=== PATIENT | female | born 1995 | race Caucasian/White ===

== ENCOUNTER 2017-01-23 20:35 | Emergency (ER) | payer SELFPAY ==
[2017-01-23 20:42] VITALS: BP 139/86; PULSE 85; RESP 16; TEMP 99.1; O2SAT 100
--- NOTE | 2017-01-23 21:29 | PD ---
HPI Chief Complaint: Chest Pain Time Seen by Provider: 21:24 Travel History International Travel<30 days: No Contact w/Intl Traveler<30days: No Traveled to known affect area: No History of Present Illness HPI 21-year-old white female presents to the department with complaints of chest pain. She tells me that she has had problems with intermittent chest pain for over several months now. In the last 2 weeks symptoms have been more persistent and then much more in the last 2 days. She admits to a recent cold this week. Positive congestion, cough and general malaise. Subjective fever. She states the pains are sharp and lasting minutes to hours at times. They seem to be random in the chest around the left side, right side, central and some radiation to her back. Pains are not exertional. There is no exacerbating or palliative activities. There is no associated nausea or vomiting. No diaphoresis or shortness of breath. She does smoke and smoke marijuana. She does not use control. She denies any calf tenderness or swelling. No sedentary activity. No family history of heart disease PFSH Past Medical History Narrative Medical Asthma as a child. Tetanus Vaccination: < 5 Years ?: Not LMP: 2 weeks ago Past Surgical History Narrative Surgical Tonsillectomy Tonsillectomy: Yes Social History Alcohol Use: Yes Tobacco Use: Yes (1-2 CIGS A DAY ) Substance Use: Yes (MARIJUANA ) Allergies-Medications (Allergen,Severity, Reaction): Coded Allergies: No Known Allergies (Verified Allergy, Unknown, 01/23/17) Review of Systems General / Constitutional: Positive: Fever Eyes: No: Visual changes HENT: Positive: Sore Throat, Congestion, No: Headaches Cardiovascular: Positive: Chest Pain or Discomfort, No: Palpitations, Irregular Rhythm, Tachycardia Respiratory: Positive: Cough, No: Shortness of Breath Gastrointestinal: No: Nausea, Vomiting, Diarrhea, Abdominal Pain Genitourinary: No: Dysuria Musculoskeletal: No: Pain Skin: No Rash Neurologic: No: Weakness Psychiatric: No: Depression Endocrine: No: Polydipsia Hematologic/Lymphatic: No: Easy Bruising Physical Exam Narrative GENERAL: Well-developed, well-nourished in no acute distress. Nontoxic appearing. HEAD: Normocephalic, atraumatic. EYES: Pupils equal round and reactive. Extraocular motions intact. No scleral icterus. No injection or drainage. ENT: TMs clear without erythema. The external auditory canals clear. Nose: clear . Posterior pharynx is pink and moist. No tonsillar edema or exudate. Uvula midline. Airway patent. NECK: Trachea midline.Supple, nontender, moves head freely. No central bony tenderness or spasm. CARDIOVASCULAR: Regular rate and rhythm without murmurs, gallops, or rubs. CHEST: Mild tenderness throughout without deformity or crepitance. No retractions or use of accessory muscles. RESPIRATORY: Clear to auscultation. Breath sounds equal bilaterally. No wheezes , rales, or rhonchi. GASTROINTESTINAL: Abdomen soft, non-tender, nondistended. No hepato-splenomegaly , or palpable masses. No guarding. EXTREMITIES: No clubbing, cyanosis, or edema. No joint tenderness, effusion, or edema noted. No calf tenderness. No Homans. No cords. BACK: Nontender without deformity or crepitance. No flank tenderness. Data Data Last Documented VS Vital Signs Date Time Temp Pulse Resp B/P (MAP) Pulse Ox O2 Delivery O2 Flow Rate FiO2 01/23/17 20:42 99.1 85 16 139/86 (103) 100 Room Air Orders Orders Electrocardiogram (01/23/17 21:23) Chest, Single Ap (01/23/17 21:23) Ed Discharge Order (01/23/17 21:56) MDM Medical Decision Making Medical Screen Exam Complete: Yes Emergency Medical Condition: Yes Medical Record Reviewed: Yes Interpretation(s) Chest x-ray: Negative EKG: Normal sinus rhythm. Normal rate. Normal intervals. No acute ST-T wave changes. Differential Diagnosis Differential diagnosis: Costochondritis, pleurisy, pericarditis, pneumonia, anxiety, bronchitis Narrative Course Patient's EKG and chest x-ray are unremarkable. This is noncardiac chest pain Diagnosis Primary Impression: Non-cardiac chest pain Patient Instructions: General Instructions Additional Instructions: Rest. 3 Advil twice daily. Follow-up with a medical doctor in one week. Return to ER for any problems Med/Other Pt SpecificInfo: No Meds Exist/No RX given Disposition: 01 DISCHARGE HOME Condition: Stable Kenan Andrade Jan 23, 2017 21:29
--- NOTE | 2017-01-23 22:26 | RADRPT ---
EXAM DATE/TIME: 01/23/2017 21:40 [facility] COMPARISON: No previous studies available for comparison. INDICATIONS : Chest pain in middle chest. MEDICAL HISTORY : None. SURGICAL HISTORY : None. ENCOUNTER: Initial ACUITY: 3 days PAIN SCORE: 6/10 LOCATION: Bilateral chest FINDINGS: A single view of the chest demonstrates the lungs to be symmetrically aerated without evidence of mas s, infiltrate or effusion. The cardiomediastinal contours are unremarkable. Osseous structures are intact. CONCLUSION: No acute disease. Terrence Jackson MD on January 23, 2017 at 22:23 Board Certified Radiologist. This report was verified electronically.
--- NOTE | 2017-01-24 15:59 | EKG ---
Date Performed: 01/23/2017 Time Performed: 21:36:02 PTAGE: 21 years EKG: Sinus rhythm NORMAL ECG NO PREVIOUS TRACING DOCTOR: Alexandrea Olsen Interpretating Date/Time 01/24/2017 15:59:24
== END 2017-01-23 22:15 | disposition home or self-care (01) ==
LOC: NEPK 20:35
DX: R07.89 Other chest pain (principal); R05 Cough; R53.81 Other malaise; R50.9 Fever, unspecified; Z72.0 Tobacco use; Z87.09 Personal history of other diseases of the respiratory system
CPT/HCPCS: 71010; 93005; 99284